=== PATIENT | female | born 1995 | race Caucasian/White ===

== ENCOUNTER 2017-04-29 18:46 | Emergency (ER) | payer OTHER | END 2017-04-29 21:07 | disposition home or self-care (01) | LOC: E/R 21:07 | DX: J06.9 Acute upper respiratory infection, unspecified (principal) | CPT/HCPCS: 99284; Z7502 ==

== ENCOUNTER 2017-07-29 05:15 | Emergency (ER) | payer OTHER | END 2017-07-29 06:43 | disposition home or self-care (01) | LOC: FTE 05:15 | DX: J06.9 Acute upper respiratory infection, unspecified (principal) | CPT/HCPCS: 99284; Z7502 ==

== ENCOUNTER 2017-11-11 22:27 | Emergency (ER) | payer OTHER ==
[2017-11-11] MEDS: ONDANSETRON (ODT) 4 MG TAB ODT (23:47)
[2017-11-11] MEDS: DICYCLOMINE 10 MG CAP PO (23:47)
== END 2017-11-12 00:28 | disposition home or self-care (01) ==
LOC: FTE 11-12 00:28
DX: R19.7 Diarrhea, unspecified (principal)
CPT/HCPCS: 81025; 99283

== ENCOUNTER 2018-01-13 09:31 | Emergency (ER) | payer OTHER ==
[2018-01-13 10:27] LABS: URINE PH (Dip) POC 6.5 (5.0-8.5)
[2018-01-13 10:27] LABS: URINE BLOOD (Dip) POC 3+ (NEGATIVE); URINE GLUCOSE (Dip) POC Negative (NEGATIVE); URINE KETONES (Dip) POC Negative (NEGATIVE); URINE LEUKOCYTE EST (Dip) POC 2+ (NEGATIVE); URINE NITRITE (Dip) POC Negative (NEGATIVE); URINE TOTAL PROTEIN POC 1+ (NEGATIVE)
== END 2018-01-13 12:06 | disposition home or self-care (01) ==
LOC: FTE 09:31
DX: R30.0 Dysuria (principal); Z91.040 Latex allergy status
CPT/HCPCS: 81003; 81025; 87591; 99283

== ENCOUNTER 2018-10-07 20:50 | Emergency (ER) | payer OTHER ==
[2018-10-07] MEDS: ONDANSETRON (ODT) 4 MG TAB ODT (23:29)
== END 2018-10-07 23:44 | disposition home or self-care (01) ==
LOC: FTE 20:50
DX: A09 Infectious gastroenteritis and colitis, unspecified (principal); R11.0 Nausea; Z91.040 Latex allergy status
CPT/HCPCS: 99283; Z7502